=== PATIENT | male | born 1985 | race Caucasian/White ===

== ENCOUNTER → 2018-05-04 | Outpatient (CLI) | payer BC ==
--- NOTE | 2018-05-04 12:27 | REP ---
Chest two views HISTORY: Shortness of breath Comparison: None The lungs are clear. The heart is normal in size. The pulmonary vasculature is normal in appearance. The bony structure is intact. IMPRESSION: No acute disease. Electronically Signed by Gallito Dooley MD 05/04/2018 12:18 P
== END ==
LOC: M RAD 11:08 → M LAB 11:08
PROVIDERS: ATTEND Nurse Practitioner Family
DX: R06.02 Shortness of breath (principal)

== ENCOUNTER → 2018-05-14 | Outpatient (CLI) | payer BC, OTHER ==
--- NOTE | 2018-05-14 13:53 | PFTRPT ---
Height: 73.00 Inches Weight: 235.00 Lbs BSA: 2.30 Diagnosis: R06.02 DATE OF PROCEDURE: 05/14/2018 ORDERED BY: Dr. Song Spirometry: Pre and post bronchodilator study of excellent technical quality. Forced vital capacity normal. FEV1 out of proportion. Obstructive index is, therefore, reduced. Flow Volume Loop: Expiratory limb of the flow volume loop consistent with flow rate limitation. Very favorable bronchodilator response is identified. Lung Volumes: Total lung capacity is elevated. Residual volume consistent with air trapping. Diffusing Capacity: Diffusing capacity normal. Hemoglobin: No hemoglobin available for correction. Airway Mechanics: Airway resistance and conductance are normal. IMPRESSION: Mild to moderate obstructive ventilatory impairment with underlying air trapping and favorable bronchodilator response. Please correlate clinically. MTDD
== END ==
LOC: M CARPUL 08:53
PROVIDERS: ATTEND Family Medicine
DX: R06.02 Shortness of breath (principal)

== ENCOUNTER → 2018-06-15 | Outpatient (CLI) | payer BC, OTHER ==
--- NOTE | 2018-06-19 07:01 | SLEEPCENT ---
DATE OF PROCEDURE: 06/15/2018 ORDERED BY: Lillian Saenz Nocturnal polysomnography was performed for evaluation of sleep physiology in this patient with abnormal nocturnal oximetry tracing. 8 hours and 22 minutes of data were reviewed. There were 367 minutes of sleep identified. Sleep latency was normal at 8.5 minutes. Rapid eye movement (REM) sleep was delayed at 105 minutes. Sleep architecture was fragmented, but improved after interventions were made. Overall sleep efficiency was 74.5%. The patient's electrocardiogram showed a sinus rhythm with an average heart rate of 65 beats per minute. Electroencephalogram (EEG) showed normal waveforms for awake and sleep stages. There were 247 respiratory events identified of 10 seconds in duration or greater for an apnea-hypopnea index of 40.3. The events were both mixed and central and obstructive. They were not exclusive to sleep stage nor body posture. They were associated with rather significant oxygen desaturations to 80%. Having clearly established the presence of obstructive sleep apnea syndrome early in testing, the study was stopped for the application of pressure therapy. The patient was fit with a [employer] Simplus full face mask of medium size and 4 cm of water pressure were applied to the circuit and the lights were extinguished. Throughout the remaining hours of testing, pressure titration was performed to an optimal pressure of +9. There was minimal activity in the limb leads. Snoring was noted earlier in the study. IMPRESSION: Obstructive sleep apnea syndrome (G47.33). Apnea-hypopnea index 40.3. RECOMMENDATION: Nightly use of pressure therapy at 9 cm water.
== END ==
LOC: M SLEEP 19:44
PROVIDERS: ATTEND Nurse Practitioner Adult Health
DX: G47.33 Obstructive sleep apnea (adult) (pediatric) (principal)

== ENCOUNTER → 2018-08-27 | Outpatient (CLI) | payer BC, OTHER ==
[2018-08-27 16:38] LABS: ALBUMIN 3.9 GM/DL (3.2-5.2); ALT/SGPT 75 U/L (12-78); BILIRUBIN,TOTAL 0.3 MG/DL (0.2-1.0); BLOOD UREA NITROGEN 14 MG/DL (7-18); CALCIUM LEVEL 8.7 MG/DL (8.5-10.1); CARBON DIOXIDE LEVEL 29 MEQ/L (21-32); CHLORIDE LEVEL 107 MEQ/L (98-107); CHOLESTEROL LEVEL 198 MG/DL (<200); CREATININE FOR GFR 1.12 MG/DL (0.70-1.30); GLOMERULAR FILTRATION RATE > 60.0 (>60); GLUCOSE, FASTING 119 MG/DL (70-100); HDL CHOLESTEROL 30 MG/DL (>40); NON-HDL-C 168 MG/DL; POTASSIUM SERUM 4.5 MEQ/L (3.5-5.1); SODIUM LEVEL 141 MEQ/L (136-145); TOTAL PROTEIN 7.3 GM/DL (6.4-8.2); TRIGLYCERIDES LEVEL 530 MG/DL (<150)
== END ==
LOC: M LAB 15:19
PROVIDERS: ATTEND Nurse Practitioner Family
DX: Z13.220 Encounter for screening for lipoid disorders (principal); J45.20 Mild intermittent asthma, uncomplicated

== ENCOUNTER → 2019-03-27 | Outpatient (REF) | payer OTHER ==
[2019-03-27 13:45] LABS: RHEUMATOID FACTOR QUANT < 10.0 IU/ML (<15.0)
[2019-03-27 16:17] LABS: HEPATITIS B SURFACE ANTIGEN NEGATIVE (NEGATIVE)
[2019-03-27 16:44] LABS: HEPATITIS B CORE ANTIBODY IGM NEGATIVE (NEGATIVE)
[2019-03-27 16:47] LABS: HEPATITIS A ANTIBODY IGM NEGATIVE (NEGATIVE)
== END ==
LOC: M LAB REF 12:41
PROVIDERS: ATTEND Registered Nurse
DX: M25.521 Pain in right elbow (principal); M13.0 Polyarthritis, unspecified

== ENCOUNTER → 2019-04-03 | Outpatient (CLI) | payer BC, OTHER ==
--- NOTE | 2019-04-04 03:51 | REP ---
Clinical: Abnormal liver function tests. Technique: Real time costa scale ultrasound examination using curved array transducer. Findings: The liver demonstrates mildly increased echotexture with decreased through transmission suggesting fatty infiltration. No focal hepatic lesion identified. Limited evaluation of the pancreas due to interposed bowel gas is noted, but without obvious pancreatic lesion. The gallbladder is normal without gallstones, wall thickening, or pericholecystic fluid. No biliary ductal dilatation is appreciated and the common bile duct measures 2.5 mm diameter. The right kidney is normal in reniform shape without hydronephrosis and measures 11.9 x 5.9 x 4.8 cm. No ascites in the visualized right upper quadrant. Impression: 1. Hepatic steatosis. Electronically Signed by Mateo Church MD 04/04/2019 03:42 A
== END ==
LOC: M RAD 08:01
PROVIDERS: ATTEND Registered Nurse
DX: R93.2 Abnormal findings on diagnostic imaging of liver and biliary tract (principal)

== ENCOUNTER → 2019-04-30 | Outpatient (CLI) | payer BC, OTHER ==
[2019-04-30 18:35] LABS: BASO # 0.1 10^3/uL (0.0-0.2); BASO % 0.8 % (0.0-1.0); EOS # 0.7 10^3/uL (0.0-0.5); EOS % 6.2 % (0.0-3.0); HEMATOCRIT 52.3 % (42.0-52.0); HEMOGLOBIN 17.9 g/dl (13.5-17.5); LYMPH # 3.3 10^3/uL (1.5-5.0); LYMPH % 28.8 % (24.0-44.0); MEAN CORPUSCULAR HGB CONC 34.2 g/dl (32.0-36.5); MEAN CORPUSCULAR VOLUME 87.6 fl (80.0-96.0); MONO # 1.1 10^3/uL (0.0-0.8); MONO % 9.2 % (0.0-5.0); NEUTROPHILS # 6.3 10^3/uL (1.5-8.5); NEUTROPHILS % 54.7 % (36.0-66.0); PLATELET COUNT, AUTOMATED 247 10^3/uL (150-450); RED BLOOD COUNT 5.97 10^6/uL (4.30-6.10); WHITE BLOOD COUNT 11.6 10^3/uL (4.0-10.0)
[2019-04-30 18:45] LABS: ALBUMIN 4.3 GM/DL (3.2-5.2); ALT/SGPT 74 U/L (12-78); BILIRUBIN,TOTAL 0.5 MG/DL (0.2-1.0); BLOOD UREA NITROGEN 16 MG/DL (7-18); CARBON DIOXIDE LEVEL 28 MEQ/L (21-32); CHLORIDE LEVEL 104 MEQ/L (98-107); CREATININE FOR GFR 1.13 MG/DL (0.70-1.30); GLOMERULAR FILTRATION RATE > 60.0 (>60); GLUCOSE, FASTING 80 MG/DL (70-100); RHEUMATOID FACTOR QUANT < 10.0 IU/ML (<15.0); SODIUM LEVEL 138 MEQ/L (136-145); THYROID STIMULATING HORMONE 0.904 uIU/ML (0.358-3.740); TOTAL PROTEIN 7.5 GM/DL (6.4-8.2)
[2019-04-30 18:46] LABS: TOTAL T3 109.6 NG/DL (60.0-181.0)
[2019-04-30 19:39] LABS: ERYTHROCYTE SEDIMENTATION RATE 1 mm/hr (0-15)
[2019-05-01 09:05] LABS: THYROID PEROXIDASE ANTIBODY 33.6 U/ML (<60.0)
[2019-05-01 09:06] LABS: THYROGLOBULIN ANTIBODY < 15.0 U/ML (<60.0)
== END ==
LOC: M LAB 15:47
PROVIDERS: ATTEND Allergy & Immunology Allergy
DX: L50.3 Dermatographic urticaria (principal); J30.9 Allergic rhinitis, unspecified

== ENCOUNTER 2019-05-09 13:42 | Emergency (ER) | payer BC, OTHER ==
[~2019-05-09] VITALS: Ht 182.9 cm; Wt 115.6 kg
[2019-05-09] MEDS ORDERED: ADV100INH (13:51)
[2019-05-09] MEDS ORDERED: ALBU8.5H (13:51)
--- NOTE | 2019-05-09 15:04 | REP ---
Chest x-ray: Two views. History: Shortness of breath, cough, fever . Comparison study: May 04, 2018 . Findings: The lungs are well inflated and free of infiltrate. The pleural angles are sharp. The heart size is normal. Pulmonary vasculature is not increased. No significant bony abnormality is seen. Impression: Negative chest x-ray. Electronically Signed by Brent Milner MD 05/09/2019 02:56 P
[2019-05-09 15:09] LABS: INFLUENZA A AMPLIFICATION NEGATIVE (NEGATIVE); INFLUENZA B AMPLIFICATION NEGATIVE (NEGATIVE)
[2019-05-09] MEDS ORDERED: BENZ200C70 PO (15:19)
[2019-05-09 15:22] VITALS: BP 135/96
== END 2019-05-09 15:25 | disposition home or self-care (01) ==
LOC: M ED 13:42
DX: J06.9 Acute upper respiratory infection, unspecified (principal); R50.9 Fever, unspecified; M79.10 Myalgia, unspecified site; J45.909 Unspecified asthma, uncomplicated; Z79.51 Long term (current) use of inhaled steroids

== ENCOUNTER 2019-10-25 09:07 | Emergency (ER) | payer BC, OTHER ==
[~2019-10-25 09:07] MED LIST: ADV100INH; ALBU8.5H; BENZ200C70 PO
[2019-10-25] MEDS ORDERED: IBUPROFEN 600MG TAB ONE (09:55)
[2019-10-25] MEDS ORDERED: CYCLOBENZAPRINE 10MG TABLET ONE (09:55)
== END 2019-10-25 10:03 | disposition home or self-care (01) ==
LOC: M ED 09:07
DX: M54.2 Cervicalgia (principal); I10 Essential (primary) hypertension; K21.9 Gastro-esophageal reflux disease without esophagitis; Z79.899 Other long term (current) drug therapy

== ENCOUNTER → 2020-01-28 | Outpatient (CLI) | payer SELFPAY | LOC: M LABSMTC 14:11 | PROVIDERS: ATTEND Pediatrics | DX: Z20.828 Contact with and (suspected) exposure to other viral communicable diseases (principal) ==

== ENCOUNTER → 2021-07-07 | Outpatient (CLI) | payer BC, OTHER | LOC: M WUC 14:22 | PROVIDERS: ATTEND Registered Nurse | DX: M25.532 Pain in left wrist (principal) ==

== ENCOUNTER → 2021-08-05 | Outpatient (CLI) | payer BC, OTHER | LOC: M PLAIMG 10:20 | PROVIDERS: ATTEND Physician Assistant | DX: G56.02 Carpal tunnel syndrome, left upper limb (principal); M65.132 Other infective (teno)synovitis, left wrist; S63.592A Other specified sprain of left wrist, initial encounter; S52.615D Nondisplaced fracture of left ulna styloid process, subsequent encounter for closed fracture with routine healing; X58.XXXD Exposure to other specified factors, subsequent encounter; Y92.9 Unspecified place or not applicable; Y93.9 Activity, unspecified; Y99.9 Unspecified external cause status ==

== ENCOUNTER 2023-03-16 09:31 | Emergency (ER) | payer BC, OTHER ==
[~2023-03-16] VITALS: Ht 185.4 cm; Wt 122.2 kg
[2023-03-16 10:14] LABS: BASO # 0.1 10^3/uL (0.0-0.2); BASO % 0.4 % (0.0-1.0); EOS # 0.4 10^3/uL (0.0-0.5); EOS % 3.1 % (0.0-3.0); HEMATOCRIT 49.1 % (42.0-52.0); HEMOGLOBIN 17.4 g/dl (13.5-17.5); LYMPH # 2.7 10^3/uL (1.5-5.0); LYMPH % 20.3 % (24.0-44.0); MEAN CORPUSCULAR HGB CONC 35.4 g/dl (32.0-36.5); MEAN CORPUSCULAR VOLUME 87.4 fl (80.0-96.0); MONO # 1.1 10^3/uL (0.0-0.8); MONO % 7.8 % (2.0-8.0); NEUTROPHILS # 9.1 10^3/uL (1.5-8.5); PLATELET COUNT, AUTOMATED 224 10^3/uL (150-450); RED BLOOD COUNT 5.62 10^6/uL (4.30-6.10); WHITE BLOOD COUNT 13.5 10^3/uL (4.0-10.0)
[2023-03-16 10:26] LABS: PROTHROMBIN TIME 12.9 SECONDS (12.5-14.5)
[2023-03-16 10:27] LABS: PARTIAL THROMBOPLASTIN TIME 26.7 SECONDS (24.8-34.2)
[2023-03-16 10:38] LABS: CK-MB VALUE MASS < 1.0 NG/ML (<3.6)
[2023-03-16 10:40] LABS: CPK CREATINE PHOSPHOKINASE 199 U/L (46-171)
[2023-03-16 10:41] LABS: ALBUMIN 3.9 G/DL (3.2-5.2); ALKALINE PHOSPHATASE 66 U/L (46-116); ALT/SGPT 37 U/L (7.0-40); AST/SGOT 19 U/L (<34); BILIRUBIN,DIRECT 0.2 MG/DL (<0.4); BILIRUBIN,TOTAL 0.7 MG/DL (0.3-1.2); BLOOD UREA NITROGEN 14 MG/DL (9-23); CALCIUM LEVEL 8.6 MG/DL (8.5-10.1); CARBON DIOXIDE LEVEL 26 MMOL/L (20-31); CHLORIDE LEVEL 106 MMOL/L (98-107); CREATININE FOR GFR 0.93 MG/DL (0.70-1.30); GLOMERULAR FILTRATION RATE > 60.0 (>60); GLUCOSE, FASTING 102 MG/DL (60-100); POTASSIUM SERUM 3.9 MMOL/L (3.5-5.1); SODIUM LEVEL 138 MMOL/L (136-145); TOTAL PROTEIN 7.1 G/DL (5.7-8.2)
[2023-03-16 10:42] LABS: FREE T4 0.95 NG/DL (0.89-1.76); THYROID STIMULATING HORMONE 0.768 uIU/ML (0.55-4.78)
[2023-03-16 10:50] LABS: LIPASE 24 U/L (12-53)
[2023-03-16] MEDS ORDERED: NS 1,000 ML IV ONE (12:00)
[2023-03-16] MEDS ORDERED: ISOVUE-370 76% 100ML VIAL As Ordered ONE (12:14)
[2023-03-16 13:13] LABS: CK-MB VALUE MASS < 1.0 NG/ML (<3.6)
[2023-03-16 13:14] LABS: CPK CREATINE PHOSPHOKINASE 176 U/L (46-171); MB/CK RELATIVE INDEX 0.56 (< OR =4)
[2023-03-16 14:05] VITALS: BP 144/95; TEMP 99; O2SAT 97
[2023-03-16] MEDS ORDERED: E-Z-PAQUE 96% w/w SUSP 176GM BTL As Ordered ONE (14:32)
[2023-03-16] MEDS ORDERED: E-Z-GAS II EFFERVESCENT PACKET (SODIUM BICARB./CITRIC ACID/SIMETHICONE) As Ordered ONE (14:32)
[2023-03-16] MEDS ORDERED: E-Z-HD 98% w/w 340GM SUSP BTL As Ordered ONE (14:33)
[2023-03-16] MEDS ORDERED: GASTROGRAFIN SOLUTION 30ML As Ordered ONE (14:37)
[2023-03-16] MEDS ORDERED: SUCR1SS PO (16:22)
[2023-03-16] MEDS ORDERED: PROT1TAB2 PO (16:22)
== END 2023-03-16 16:40 | disposition home or self-care (01) ==
LOC: M ED 09:31
DX: T18.128A Food in esophagus causing other injury, initial encounter (principal)
CPT/HCPCS: 71046; 71260; 74220; 80048; 80076; 82550; 82553; 83690; 84439; 84443; 84484; 85025; 85610; 85730; 93005; 96360; 99284; Q9963; Q9967